=== PATIENT | female | born 1950 | race African-American/Black ===

== ENCOUNTER 2021-03-19 17:06 | Emergency (ER) | payer OTHER, MEDICAID ==
[~2021-03-19] VITALS: Ht 167.6 cm; Wt 68.0 kg
[~2021-03-19 17:06] MED LIST: ALLO300T2 MT; AMLO5TAB88 MT; ASPI-1497 MT; COLC0.6C3 MT; FLUO40CA8 MT; HYDR-4346 PO; LINA5TAB MT; MECL-159 MT; MELO-106 MT; ONDA4TAB5 MT; QUET25TA36 MT; SERT50TA MT
[2021-03-19] MEDS ORDERED: OXYCODONE HCL/ACETAMINOPHEN 5/325MG TABLET PO ONE (17:30)
[2021-03-19] MEDS ORDERED: TOPUD PO (18:08)
[2021-03-19 18:55] VITALS: BP 126/67
== END 2021-03-19 18:57 | disposition home or self-care (01) ==
LOC: ER 17:06
DX: S42.492A Other displaced fracture of lower end of left humerus, initial encounter for closed fracture (principal); J45.909 Unspecified asthma, uncomplicated; E11.9 Type 2 diabetes mellitus without complications; I10 Essential (primary) hypertension; Z79.899 Other long term (current) drug therapy; Z88.8 Allergy status to other drugs, medicaments and biological substances; W18.39XA Other fall on same level, initial encounter; Y93.89 Activity, other specified; Y92.89 Other specified places as the place of occurrence of the external cause; Y99.8 Other external cause status
CPT/HCPCS: 29105; 73070; 99283